=== PATIENT | female | born 1990 | race African-American/Black ===

== ENCOUNTER 2021-04-05 23:46 | Outpatient (CLI) | payer OTHER | END 2021-04-05 23:47 | disposition EMS.NT | LOC: EMS 23:46 | DX: M54.5 Low back pain (principal) ==

== ENCOUNTER 2021-04-06 00:49 | Emergency (ER) | payer OTHER ==
[2021-04-06] MEDS ORDERED: DEXAMETHASONE 10 MG/ML VIAL IVP STA (01:01)
[2021-04-06] MEDS ORDERED: KETOROLAC 30 MG/ML VIAL IVP STA (01:01)
[2021-04-06] MEDS ORDERED: SODIUM CHLORIDE 0.9% 1,000 ML IV STA (01:01)
--- NOTE | 2021-04-06 01:13 | ED Physician Documentation ---
PD HPI BACK PAIN - Stated complaint Stated Complaint: LOW BACK PAIN - Chief complaint Chief Complaint: Back Pain - History obtained from History obtained from: Patient - History of Present Illness Timing - onset: Yesterday Timing - duration: Days (1) Timing - details: Abrupt onset, Still present Location: Lower, Left Quality: Pain, Spasm, Sharp Associated symptoms: No: Fever, Weakness, Numbness, Incontinent of urine, Unable to urinate, Hematuria, Incontinent of stool Improves with: Rest, Ice, Position Worsened by: Movement Contributing factors: Other (hoing) Similar symptoms before: Has not had sx before Recently seen: Not recently seen - Additional information Additional information: 30-year-old female was harvesting potatoes in her garden this morning and strained her left lower back. She had some limping for a time and had some improvement in her back pain. She eventually went to bed and when she awoke she was quite stiff got up to go to the bathroom and was unable to get off the commode and had to call the ambulance. Review of Systems Constitutional: denies: Fever Eyes: denies: Decreased vision Ears: denies: Ear pain Nose: denies: Congestion Throat: denies: Sore throat Respiratory: denies: Cough GI: denies: Vomiting, Diarrhea Musculoskeletal: reports: Back pain PD PAST MEDICAL HISTORY - Past Medical History Past Medical History: No - Past Surgical History Past Surgical History: Yes - Present Medications Home Medications: Ambulatory Orders Medication Instructions Recorded Confirmed Cyclobenzaprine [Flexeril] 10 mg PO TID PRN #20 tablet 04/06/21 traMADol [Ultram] 50 - 100 mg PO Q6H PRN #20 tablet 04/06/21 - Allergies Allergies/Adverse Reactions: Allergies Allergy/AdvReac Type Severity Reaction Status Date / Time No Known Drug Allergies Allergy Verified 04/06/21 00:52 - Social History Does the pt smoke?: No Smoking Status: Never smoker Does the pt drink ETOH?: No Does the pt have substance abuse?: No - Immunizations Immunizations are current?: Yes PD ED PE NORMAL - Vitals Vital signs reviewed: Yes - General General: Alert and oriented X 3, No acute distress, Well developed/nourished - HEENT HEENT: Atraumatic, PERRL, EOMI - Neck Neck: Supple, no meningeal sign, No bony TTP - Cardiac Cardiac: RRR, No murmur - Respiratory Respiratory: No respiratory distress, Clear bilaterally - Abdomen Abdomen: Soft, Non tender - Back Back: No CVA TTP, No spinal TTP, Other (mild tenderness to the paraspinous muscles on the left side of the lower lumbar spine .) - Derm Derm: Normal color, Warm and dry, No rash - Extremities Extremities: No deformity, No edema - Neuro Neuro: Alert and oriented X 3, 1st pressman 2-12 intact, No motor deficit, No sensory de ficit, Normal speech Eye Opening: Spontaneous Motor: Obeys Commands Verbal: Oriented GCS Score: 15 - Psych Psych: Normal mood, Normal affect Results - Vitals Vitals: Vital Signs - 24 hr 04/06/21 04/06/21 04/06/21 00:53 00:56 02:05 Temperature 36.4 C L Heart Rate 70 70 66 Respiratory 16 16 16 Rate Blood Pressure 116/86 H 116/86 H 128/72 O2 Saturation 98 98 100 Oxygen O2 Source Room air PD MEDICAL DECISION MAKING - ED course Complexity details: reviewed results, re-evaluated patient, considered differential, d/w patient, d/w family ED course: Previously well 30-year-old female who found herself stuck on the commode today with severe back spasm is brought to the hospital by ambulance. Here in the emergency department she is administered saline Toradol and dexamethasone with some improvement. Departure - Departure Disposition: 01 Home, Self Care Clinical Impression: Spasm of back muscles Instructions: ED Low Back Pain Injury Follow-Up: MAXIMINO Infante [Provider Group] Prescriptions: Cyclobenzaprine [Flexeril] 10 mg PO TID PRN #20 tablet PRN Reason: Spasms traMADol [Ultram] 50 - 100 mg PO Q6H PRN #20 tablet PRN Reason: Pain
[2021-04-06] MEDS ORDERED: traMADol 50 MG TABLET PO STA (02:39)
[2021-04-06 03:45] VITALS: BP 122/70
== END 2021-04-06 04:18 | disposition home or self-care (01) ==
LOC: ED 00:49
DX: M62.830 Muscle spasm of back (principal)
CPT/HCPCS: 96374; 96375; 99283; 99284; A9270